=== PATIENT | female | born 1985 ===

== ENCOUNTER 2020-02-17 20:27 | Emergency (ER) | payer SELFPAY ==
[2020-02-17 21:18] LABS: Basophils % (Auto) 0.3 % (0.0-1.8); Eosinophils # (Auto) 0.2 K/mm3 (0.0-0.4); Eosinophils % (Auto) 2.2 % (0.0-4.3); Hematocrit 41.6 % (30.3-42.9); Hemoglobin 13.8 gm/dl (10.1-14.3); Lymphocytes % (Auto) 28.2 % (13.4-35.0); Mean Corpuscular HGB Conc 33 % (30-34); Mean Corpuscular Volume 98 fl (79-97); Monocytes # (Auto) 0.8 K/mm3 (0.0-0.8); Monocytes % (Auto) 7.8 % (0.0-7.3); Platelet Count 318 K/mm3 (140-440); Red Blood Count 4.23 M/mm3 (3.65-5.03); Red Cell Distribution Width 13.1 % (13.2-15.2)
[2020-02-17 21:39] LABS: Alanine Aminotransferase 39 units/L (7-56); Albumin 4.3 g/dL (3.9-5); Blood Urea Nitrogen 11 mg/dL (7-17); Calcium 9.1 mg/dL (8.4-10.2); Hemolysis Index 7
[2020-02-17 21:42] LABS: BUN/Creatinine Ratio 18
[2020-02-17 22:04] LABS: Bacteria,Urine 1+ /HPF (Negative); Bilirubin,Urine NEG (Negative); Blood,Urine LG (Negative); Color,Urine Yellow (Yellow); Mucus,Urine FEW /HPF; Protein,Urine <15 mg/dL mg/dL (Negative); Urobilinogen,Urine < 2.0 mg/dL (<2.0)
[2020-02-18] MEDS ORDERED: PANTOPRAZOLE 40 MG INJ IV ONE (01:02)
[2020-02-18] MEDS ORDERED: ALUM-MAG HYDROXIDE-SIMETHICONE 200-200-20MG/5ML ORAL LIQD 30 ML PO ONE (01:03)
[2020-02-18] MEDS ORDERED: LIDOCAINE VISCOUS 2% 15 ML ORAL LIQD PO ONE (01:03)
--- NOTE | 2020-02-18 01:12 | Emergency Department Report ---
ED Abdominal Pain HPI - General Chief Complaint: Abdominal Pain Stated Complaint: SEVERE ABD PAIN Time Seen by Provider: 02/18/20 00:29 Source: patient Mode of arrival: Ambulatory Limitations: Language Barrier (Paralegal Supervisor line used) - History of Present Illness Initial Comments: 34-year-old female patient presents with complaints of epigastric pain and nausea x4 days. She reports history of gastritis and PUD diagnosed 7 years ago. She denies being on any antacids currently. She denies any hematemesis/coffee-ground emesis, melena/hematochezia, diarrhea/constipation, history of abdominal surgeries, chest pain, shortness of breath, cough, or fever/chills/sweats. Patient rates her current pain as a 10/10 in severity and describes it as a burning sensation. She states the pain radiates to her right abdomen and through to her back, but denies any tearing ripping type pain. She denies trying any OTC medications for her symptoms. Pain does worsen with food per patient. Patient states this feels similar to her past gastritis pain. -: Gradual Severity scale (0 -10): 10 - Related Data Previous Rx's Medication Instructions Recorded Last Taken Type Pantoprazole [Protonix] 40 mg PO QDAY 15 Days #15 tablet 02/18/20 Unknown Rx Sucralfate [Carafate] 1 gm PO Q6HR 10 Days #40 tablet 02/18/20 Unknown Rx Allergies Allergy/AdvReac Type Severity Reaction Status Date / Time No Known Allergies Allergy Verified 02/17/20 20:42 ED Review of Systems ROS: Stated complaint: SEVERE ABD PAIN Other details as noted in HPI Constitutional: denies: chills, fever, malaise ENT: denies: throat pain Respiratory: denies: cough, shortness of breath Cardiovascular: denies: chest pain, palpitations, edema, syncope Endocrine: denies: excessive sweating Gastrointestinal: abdominal pain, nausea. denies: vomiting, diarrhea, constipation, hematemesis, melena, hematochezia Genitourinary: denies: urgency, dysuria, frequency, hematuria, discharge Musculoskeletal: denies: back pain Neurological: denies: headache, weakness Hematological/Lymphatic: denies: easy bleeding, easy bruising, swollen glands ED Past Medical Hx - Past Medical History Previous Medical History?: Yes Additional medical history: High cholestrol - Surgical History Past Surgical History?: No - Social History Smoking Status: Never Smoker Substance Use Type: Marijuana - Medications Home Medications: Home Medications Medication Instructions Recorded Confirmed Last Taken Type Pantoprazole [Protonix] 40 mg PO QDAY 15 Days #15 tablet 02/18/20 Unknown Rx Sucralfate [Carafate] 1 gm PO Q6HR 10 Days #40 tablet 02/18/20 Unknown Rx ED Physical Exam - General Limitations: Language Barrier General appearance: alert, in no apparent distress - Head Head exam: Present: atraumatic, normocephalic - Eye Eye exam: Present: normal appearance. Absent: scleral icterus - ENT ENT exam: Present: mucous membranes moist - Respiratory Respiratory exam: Present: normal lung sounds bilaterally. Absent: respiratory distress, chest wall tenderness - Cardiovascular Cardiovascular Exam: Present: regular rate, normal rhythm. Absent: systolic murmur, diastolic murmur, rubs, gallop - GI/Abdominal GI/Abdominal exam: Present: soft, tenderness (Minimal epigastric, mildly positive Johnson sign), normal bowel sounds. Absent: distended, guarding, rebound, rigid, organomegaly, mass, pulsatile mass - Extremities Exam Extremities exam: Present: normal inspection - Back Exam Back exam: Present: normal inspection - Neurological Exam Neurological exam: Present: alert, oriented X3 - Psychiatric Psychiatric exam: Present: normal affect, normal mood - Skin Skin exam: Present: warm, dry, intact, normal color. Absent: rash, cyanosis, diaphoretic, ecchymosis ED Course Vital Signs 02/17/20 02/17/20 20:33 20:39 Temperature 98.6 F Pulse Rate 85 85 Respiratory 12 Rate Blood Pressure 167/89 Blood Pressure 167/89 [Right] O2 Sat by Pulse 100 100 Oximetry ED Medical Decision Making - Lab Data Result diagrams: 02/17/20 20:56 02/17/20 20:56 - Radiology Data Radiology results: report reviewed LIMITED RUQ ABDOMINAL ULTRASOUND INDICATION: epigatsric/RUQ pain. COMPARISON: No relevant prior imaging study available. FINDINGS: Pancreas: Visualized portions show no significant abnormality. Abdominal Aorta: No significant abnormality. IVC: No significant abnormality. Liver: The liver measures 16.4 cm in length. No significant abnormality. Normal hepatopedal blood flow in the main portal vein. Gallbladder: There are multiple stones in the gallbladder without gallbladder distention. Negative Johnson sign. Bile ducts: No significant abnormality. Common bile duct measures 5.7 mm. Right kidney: No significant abnormality visualized.. Free fluid: None. Additional Findings: None. IMPRESSION: 1. Cholelithiasis without evidence of acute cholecystitis. - Medical Decision Making 34-year-old female patient presents with complaints of epigastric pain and nausea x4 days. She reports history of gastritis and PUD diagnosed 7 years ago. She denies being on any antacids currently. She denies any hematemesis/coffee-ground emesis, melena/hematochezia, diarrhea/constipation, history of abdominal surgeries, chest pain, shortness of breath, cough, or fever/chills/sweats. Patient rates her current pain as a 10/10 in severity and describes it as a burning sensation. She states the pain radiates to her right abdomen and through to her back, but denies any tearing ripping type pain. She denies trying any OTC medications for her symptoms. Pain does worsen with food per patient. Patient states this feels similar to her past gastritis pain. On exam, patient has minimal epigastric tenderness without rebound, guarding, or abdominal distention. Patient does have some tenderness in the right upper quadrant and a mildly positive Johnson sign. Right upper quadrant ultrasound shows cholelithiasis without cholecystitis. CBC, CMP, lipase, UA are normal. She is afebrile and non-tachycardic. Patient given GI cocktail and Protonix IV. She states her symptoms have significantly improved. Recommend follow-up with gastroenterology for further assessment of her gallbladder and gastritis. She denies any red flag symptoms, she is well-appearing, and she is stable for discharge home. Strict return precautions were discussed in great detail with patient who verbalizes understanding Critical care attestation.: If time is entered above; I have spent that time in minutes in the direct care of this critically ill patient, excluding procedure time. ED Disposition Clinical Impression: Elevated blood pressure reading, Cholelithiases Gastritis Qualifiers: Gastritis type: other gastritis Chronicity: chronic Gastritis bleeding: presence of bleeding unspecified Qualified Code(s): K29.50 - Unspecified chronic gastritis without bleeding Disposition: TO HOME OR SELFCARE Is pt being admited?: No Condition: Stable Instructions: Gastritis (ED), Biliary Colic (ED), Diet for Ulcers and Gastritis (ED), Gastroesophageal Reflux Disease (ED) Prescriptions: Sucralfate [Carafate] 1 gm PO Q6HR 10 Days #40 tablet Pantoprazole [Protonix] 40 mg PO QDAY 15 Days #15 tablet Referrals: [facility] [Provider Group] - 2-3 Days [facility] [Provider Group] - 2-3 Days Print Language: SLOV[place]
--- NOTE | 2020-02-18 01:42 | Ultrasound Report ---
LIMITED RUQ ABDOMINAL ULTRASOUND INDICATION: epigatsric/RUQ pain. COMPARISON: No relevant prior imaging study available. FINDINGS: Pancreas: Visualized portions show no significant abnormality. Abdominal Aorta: No significant abnormality. IVC: No significant abnormality. Liver: The liver measures 16.4 cm in length. No significant abnormality. Normal hepatopedal blood andrés w in the main portal vein. Gallbladder: There are multiple stones in the gallbladder without gallbladder distention. Negative Mu rphy sign. Bile ducts: No significant abnormality. Common bile duct measures 5.7 mm. Right kidney: No significant abnormality visualized.. Free fluid: None. Additional Findings: None. IMPRESSION: 1. Cholelithiasis without evidence of acute cholecystitis. Signer Name: Farhan Arias MD Signed: 02/18/2020 1:38 AM Workstation Name: [id number]
[2020-02-18 04:09] VITALS: BP 140/82
== END 2020-02-18 03:30 | disposition home or self-care (01) ==
LOC: ED 20:27
DX: K80.20 Calculus of gallbladder without cholecystitis without obstruction (principal); K29.70 Gastritis, unspecified, without bleeding; R03.0 Elevated blood-pressure reading, without diagnosis of hypertension; E78.00 Pure hypercholesterolemia, unspecified; F12.90 Cannabis use, unspecified, uncomplicated; Z79.899 Other long term (current) drug therapy
CPT/HCPCS: 36415; 76705; 80053; 81001; 83690; 84703; 85025; 96374; 99284; C9113